=== PATIENT | male | born 1955 | race Caucasian/White ===

== ENCOUNTER 2017-02-17 12:47 | Inpatient (IN) | payer OTHER ==
[~2017-02-17] VITALS: Ht 178 cm; Wt 64.9 kg
[2017-02-17 13:24] LABS: BASOPHIL 0.6 % (0-2); EOSINOPHIL 1.7 % (0-5); HGB 10.1 g/dl (13.2-18.0); LYMPHOCYTE 25.2 % (15-48); MCH 29.6 pg (25.0-31.0); MCHC 33.7 g/dL (32.0-36.0); MONOCYTE 8.1 % (0-12); MPV 10.7 fL (6.0-9.5); NEUTROPHIL 64.4 % (41-80); PLT 260 K/uL (150-400); RBC 3.41 M/uL (4.70-6.00); RDW 11.6 % (11.5-14.0); WBC 6.9 K/uL (4.0-10.5)
[2017-02-17 13:39] LABS: INR 1.13 (0.9-1.2); PROTHROMBIN TIME 13.6 SECONDS (11.4-13.2); PTT 31.8 SECONDS (24.3-32.1)
[2017-02-17 13:48] LABS: ALBUMIN 4.1 g/dL (3.4-4.8); BILIRUBIN - TOTAL 0.5 mg/dL (0.1-1.0); CREATININE 0.9 mg/dL (0.7-1.2); GLOBULIN (CALCULATION) 2.3 g/dL (2.2-4.2); POTASSIUM 3.8 mmol/L (3.5-5.1); TOTAL PROTEIN 6.4 g/dL (6.4-8.3)
[2017-02-17 14:01] LABS: BILIRUBIN NEGATIVE (NEGATIVE); BLOOD NEGATIVE Ery/uL (NEGATIVE); CLARITY CLEAR (CLEAR); COLOR YELLOW (YELLOW); GLUCOSE (U) NORMAL (NORMAL); KETONE (U) NEGATIVE (NEGATIVE); LEUKOCYTES NEGATIVE Leu/uL (NEGATIVE); NITRITE NEGATIVE (NEGATIVE); PROTEIN NEGATIVE (NEGATIVE); SPECIFIC GRAVITY >=1.030 (1.001-1.030); UROBILINOGEN 0.2 mg/dL (0.2-1.0)
[2017-02-17 19:23] LABS: BASOPHIL NO PRINT 0.8 % (0-2); EOSINOPHIL NO PRINT 3.7 % (0-5); HCT 27.1 % (42.0-52.0); HGB 9.2 g/dL (13.2-18.0); LYMPHOCYTE NO PRINT 35.2 % (15-48); MCH NO PRINT 30.3 pg (25.0-31.0); MCHC NO PRINT 33.9 g/dL (32.0-36.0); MCV NO PRINT 89.1 fL (78.0-100.0); MONOCYTE NO PRINT 8.6 % (0-12); MPV NO PRINT 10.2 fL (6.0-9.5); NEUTROPHIL NO PRINT 51.7 % (41-80); PLT NO PRINT 233 K/uL (150-400); RBC NO PRINT 3.04 M/uL (4.70-6.00); RDW NO PRINT 11.6 % (11.5-14.0); WBC NO PRINT 6.5 K/uL (4.0-10.5)
[2017-02-18 02:00] LABS: BASOPHIL NO PRINT 0.7 % (0-2); HCT 24.6 % (42.0-52.0); HGB 8.4 g/dL (13.2-18.0); LYMPHOCYTE NO PRINT 36.4 % (15-48); MCH NO PRINT 30.4 pg (25.0-31.0); MCHC NO PRINT 34.1 g/dL (32.0-36.0); MCV NO PRINT 89.1 fL (78.0-100.0); MONOCYTE NO PRINT 7.4 % (0-12); MPV NO PRINT 9.6 fL (6.0-9.5); NEUTROPHIL NO PRINT 51.5 % (41-80); PLT NO PRINT 213 K/uL (150-400); RBC NO PRINT 2.76 M/uL (4.70-6.00); RDW NO PRINT 11.4 % (11.5-14.0); WBC NO PRINT 5.8 K/uL (4.0-10.5)
[2017-02-18 06:30] LABS: EOSINOPHIL 5.2 % (0-5); HCT 25.3 % (42.0-52.0); HGB 8.6 g/dl (13.2-18.0); LYMPHOCYTE 33.3 % (15-48); MCH 30.2 pg (25.0-31.0); MCV 88.8 fL (78.0-100.0); MONOCYTE 8.5 % (0-12); MPV 10.4 fL (6.0-9.5); PLT 233 K/uL (150-400); RBC 2.85 M/uL (4.70-6.00); RDW 11.6 % (11.5-14.0); WBC 5.2 K/uL (4.0-10.5)
[2017-02-18 06:55] LABS: POTASSIUM 3.8 mmol/L (3.5-5.1)
[2017-02-18 18:08] LABS: BASOPHIL NO PRINT 1.2 % (0-2); EOSINOPHIL NO PRINT 4.1 % (0-5); HGB 9.2 g/dL (13.2-18.0); LYMPHOCYTE NO PRINT 38.1 % (15-48); MCH NO PRINT 30.7 pg (25.0-31.0); MCHC NO PRINT 34.1 g/dL (32.0-36.0); MPV NO PRINT 10.2 fL (6.0-9.5); NEUTROPHIL NO PRINT 44.6 % (41-80); PLT NO PRINT 255 K/uL (150-400); RDW NO PRINT 11.5 % (11.5-14.0); WBC NO PRINT 5.2 K/uL (4.0-10.5)
[2017-02-19 05:46] LABS: BASOPHIL NO PRINT 0.6 % (0-2); EOSINOPHIL NO PRINT 5.9 % (0-5); HCT 24.3 % (42.0-52.0); HGB 8.2 g/dL (13.2-18.0); LYMPHOCYTE NO PRINT 28.2 % (15-48); MCH NO PRINT 30.1 pg (25.0-31.0); MCHC NO PRINT 33.7 g/dL (32.0-36.0); MCV NO PRINT 89.3 fL (78.0-100.0); MONOCYTE NO PRINT 10.4 % (0-12); MPV NO PRINT 9.8 fL (6.0-9.5); NEUTROPHIL NO PRINT 54.9 % (41-80); PLT NO PRINT 221 K/uL (150-400); RBC NO PRINT 2.72 M/uL (4.70-6.00); RDW NO PRINT 11.5 % (11.5-14.0); WBC NO PRINT 5.1 K/uL (4.0-10.5)
[2017-02-19 19:17] LABS: BASOPHIL NO PRINT 0.8 % (0-2); EOSINOPHIL NO PRINT 4.1 % (0-5); HCT 25.3 % (42.0-52.0); HGB 8.5 g/dL (13.2-18.0); LYMPHOCYTE NO PRINT 25.5 % (15-48); MCH NO PRINT 30.8 pg (25.0-31.0); MCHC NO PRINT 33.6 g/dL (32.0-36.0); MCV NO PRINT 91.7 fL (78.0-100.0); MONOCYTE NO PRINT 8.9 % (0-12); MPV NO PRINT 10.1 fL (6.0-9.5); NEUTROPHIL NO PRINT 60.7 % (41-80); PLT NO PRINT 237 K/uL (150-400); RBC NO PRINT 2.76 M/uL (4.70-6.00); RDW NO PRINT 11.7 % (11.5-14.0); WBC NO PRINT 6.3 K/uL (4.0-10.5)
[2017-02-20 06:06] LABS: BASOPHIL 0.6 % (0-2); EOSINOPHIL 4.7 % (0-5); HCT 23.9 % (42.0-52.0); HGB 8.1 g/dl (13.2-18.0); LYMPHOCYTE 28.2 % (15-48); MCH 30.3 pg (25.0-31.0); MCHC 33.9 g/dL (32.0-36.0); MCV 89.5 fL (78.0-100.0); MONOCYTE 9.9 % (0-12); MPV 10.3 fL (6.0-9.5); NEUTROPHIL 56.6 % (41-80); PLT 241 K/uL (150-400); RBC 2.67 M/uL (4.70-6.00); RDW 11.5 % (11.5-14.0); WBC 4.9 K/uL (4.0-10.5)
[2017-02-20 06:31] LABS: ALBUMIN 3.4 g/dL (3.4-4.8); BILIRUBIN - TOTAL 0.5 mg/dL (0.1-1.0); CREATININE 1.1 mg/dL (0.7-1.2); GLOBULIN (CALCULATION) 2.2 g/dL (2.2-4.2); TOTAL PROTEIN 5.6 g/dL (6.4-8.3)
--- NOTE | 2017-02-20 09:56 | NUR ---
REVIEWED DISCHARGE INSTRUCTIONS, APPT INFORMATION AND MEDICATIONS WITH PT AND SPOUSE VERBALIZED UNDERSTANDING DENIES PAIN OR DISCOMOFORT
[2017-02-20] MEDS ORDERED: PROTONIX 40MG T40 MG PO (10:15)
[2017-02-20] MEDS ORDERED: FEOSOL325 MG PO (10:15)
[2017-02-20] MEDS ORDERED: ZOCOR20 MG PO (10:16)
[2017-02-20] MEDS ORDERED: ACETAMINOPHEN325 MG PO (10:16)
[2017-02-20] MEDS ORDERED: VITAMIN D1000 UNI1 PO (10:17)
[2017-02-20] MEDS ORDERED: TUMS200 MG PO (10:17)
== END 2017-02-20 09:56 | disposition home or self-care (01) | DRG 378 ==
LOC: FER 12:47 → FMS 14:30
PROVIDERS: Emergency Medicine; Internal Medicine; Surgery; ADMIT Internal Medicine
PROC: 0DB78ZX Excision of Stomach, Pylorus, Via Natural or Artificial Opening Endoscopic, Diagnostic (ICD-10-PCS; principal; 2017-02-19 10:00)
DX: K92.2 Gastrointestinal hemorrhage, unspecified (principal); D62 Acute posthemorrhagic anemia; K25.9 Gastric ulcer, unspecified as acute or chronic, without hemorrhage or perforation; Z82.3 Family history of stroke; Z80.9 Family history of malignant neoplasm, unspecified; Z83.3 Family history of diabetes mellitus; Z72.0 Tobacco use; Z79.82 Long term (current) use of aspirin; E78.00 Pure hypercholesterolemia, unspecified; I51.7 Cardiomegaly; E78.5 Hyperlipidemia, unspecified
CPT/HCPCS: 36415; 74022; 80048; 80053; 81003; 84484; 85014; 85018; 85025; 85610; 85730; 86850; 86900; 86901; 87339; 93005; C9113; J2704